=== PATIENT | female | born 1990 | race Caucasian/White ===

== ENCOUNTER 2018-07-25 18:13 | Emergency (ER) | payer OTHER ==
[2018-07-25 18:44] VITALS: BP 129/80
--- NOTE | 2018-07-25 19:29 | UC ---
Skin Complaint HPI - HPI Summary HPI Summary: Onset of pruritic rash in umbilical area x 3 weeks ago, improved, with progression to underside of both breasts. Following that, has developed scattered itchy papules under the breasts and in the Used aloe x 1 with no relief. Pruritus is increasing. No infectious contacts. No hot tub use. - History of Current Complaint Chief Complaint: UCRash Time Seen by Provider: 07/25/18 19:28 Stated Complaint: RASH Hx Obtained From: Patient Hx Last Menstrual Period: "a couple weeks ago" ?: No Onset/Duration: Gradual Onset, Lasting Weeks Timing: Constant Onset Severity: Mild Current Severity: Moderate Pain Intensity: 0 Location: Discrete - patches as described above Aggravating Factor(s): Touch - clothing Alleviating Factor(s): Nothing - Allergy/Home Medications Allergies/Adverse Reactions: Allergies Allergy/AdvReac Type Severity Reaction Status Date / Time No Known Allergies Allergy Verified 07/25/18 18:36 Home Medications: Home Medications FLUoxetine CAP* [PROzac CAP*] 60 mg PO DAILY 07/25/18 [History Confirmed ] Omeprazole CAP* [Prilosec CAP* 20 MG] 40 mg PO DAILY 07/25/18 [History Confirmed 07/25/18] Review of Systems Constitutional: Negative Gastrointestinal: Abdominal Pain - has bloating and cramping often, hx of IBS. Wonders about gluten sensitivity. Past testing negative, but that was years ago. Is Patient Immunocompromised?: No All Other Systems Reviewed And Are Negative: Yes PMH/Surg Hx/FS Hx/Imm Hx Previously Healthy: Yes GI/ History: Other Other GI/ History: Irritable bowel syndrome - Surgical History Surgical History: Yes Surgery Procedure, Year, and Place: Cholecystectomy, 2015, [place]; Tonsillectomy , ~1999, [place] - Family History Known Family History: Positive: Other Family History: + celiac disease. - Social History Occupation: Employed Full-time Lives: With Family Alcohol Use: Occasionally Substance Use Type: None Smoking Status (MU): Heavy Every Day Tobacco Smoker Type: Cigarettes Amount Used/How Often: 1/2 PPD Length of Time of Smoking/Using Tobacco: Since Age 13 (not during 3 pregnancies and quit for one year) Physical Exam Triage Information Reviewed: Yes Appearance: Well-Appearing, No Pain Distress, Obese Vital Signs: Initial Vital Signs Temp 98.5 F 07/25/18 18:33 Pulse 86 07/25/18 18:33 Resp 16 07/25/18 18:33 BP 129/80 07/25/18 18:33 Pulse Ox 99 07/25/18 18:33 Vital Signs Reviewed: Yes Eyes: Positive: Conjunctiva Clear ENT: Positive: Normal ENT inspection Neck exam: Normal Respiratory: Positive: Lungs clear, Normal breath sounds Cardiovascular: Positive: RRR, No Murmur Skin: Positive: rashes - upper inner arms with patch of small papules without erythema, not in axilla. Under both breasts, erythematous skin with numerous tiny pustules. No drainage. Course/Dx - Course Course Of Treatment: cephalexin for folliculitis; nystatin powder under breasts. - Differential Diagnoses - Skin Complaint Differential Diagnoses: Contact Dermatitis, Other - folliculitis, intertrigo - Diagnoses Provider Diagnoses: folliculitis, intertrigo Discharge - Sign-Out/Discharge Documenting (check all that apply): Patient Departure All imaging exams completed and their final reports reviewed: No Studies - Discharge Plan Condition: Stable Disposition: HOME Prescriptions: Cephalexin CAP* [Keflex 500 CAP*] 500 mg PO TID #15 cap Nystatin TOP POWDER* 1 applic TOPICAL BID #1 btl Patient Education Materials: Folliculitis (ED), Skin Yeast Infection (ED) Referrals: No Primary Care Phys,NOPCP [Primary Care Provider] - Additional Instructions: To stop itching, take benadryl 25mg at bedtime, and use 1% hydrocortisone on the skin of the upper arms. use a good moisturizer, such as cetaphil or CeraVe. Begin cephalexin for treatment of folliculitis. use nystatin powder to the area under the breasts. - Billing Disposition and Condition Condition: STABLE Disposition: Home
== END 2018-07-25 19:58 | disposition home or self-care (01) ==
LOC: UCCORT 18:13
DX: L25.9 Unspecified contact dermatitis, unspecified cause (principal); L73.9 Follicular disorder, unspecified; L30.4 Erythema intertrigo; F17.210 Nicotine dependence, cigarettes, uncomplicated
CPT/HCPCS: 99202; G0463

== ENCOUNTER 2018-11-10 14:54 | Emergency (ER) | payer BC, OTHER ==
[2018-11-10 15:11] VITALS: BP 127/75
--- NOTE | 2018-11-10 15:32 | UC ---
Ear Complaint HPI - HPI Summary HPI Summary: Started w/ bilat ear pain a few days ago, 10 days of cough and congestion. denies fever, n/v. does have sick contacts. - History of Current Complaint Chief Complaint: UCGeneralIllness Stated Complaint: BI LAT EAR PAIN Time Seen by Provider: 11/10/18 15:17 Hx Obtained From: Patient Hx Last Menstrual Period: 11/01/18 Severity Initially: Mild Severity Currently: Mild Pain Intensity: 2 Pain Scale Used: 0-10 Numeric - Allergies/Home Medications Allergies/Adverse Reactions: Allergies Allergy/AdvReac Type Severity Reaction Status Date / Time No Known Allergies Allergy Verified 11/10/18 15:10 PMH/Surg Hx/FS Hx/Imm Hx Previously Healthy: Yes - Surgical History Surgical History: Yes Surgery Procedure, Year, and Place: Cholecystectomy, 2014, [place]; Tonsillectomy , ~1999, [place] - Family History Known Family History: Positive: Other Family History: + celiac disease. - Social History Alcohol Use: Occasionally Substance Use Type: None Smoking Status (MU): Heavy Every Day Tobacco Smoker Type: Cigarettes Amount Used/How Often: 1/2 PPD Length of Time of Smoking/Using Tobacco: Since Age 13 (not during 3 pregnancies and quit for one year) Review of Systems All Other Systems Reviewed And Are Negative: Yes Constitutional: Positive: Negative. Negative: Fever Skin: Positive: Negative Eyes: Negative: Drainage, Eye Redness ENT: Positive: Ear Ache, Nasal Discharge. Negative: Sore Throat Respiratory: Positive: Cough Cardiovascular: Positive: Negative Gastrointestinal: Negative: Vomiting, Diarrhea Neurological: Negative: Headache Physical Exam Triage Information Reviewed: Yes Appearance: Well-Appearing Vital Signs: Initial Vital Signs Temp 97.8 F 11/10/18 15:08 Pulse 72 11/10/18 15:08 Resp 17 11/10/18 15:08 BP 127/75 11/10/18 15:08 Pulse Ox 100 11/10/18 15:08 Vital Signs Reviewed: Yes Eyes: Positive: Conjunctiva Clear ENT: Positive: Pharynx normal, TMs normal, Uvula midline Neck: Positive: Supple, No Lymphadenopathy Respiratory Exam: Normal Cardiovascular Exam: Normal Neurological: Positive: Alert Skin Exam: Normal Ear Complaint Course/Dx - Course Course Of Treatment: Started w/ nonproductive cough, no fever then bilat ear pain approx 2 wks ago. Sick contacts+. Exam essentially unremarkable, no signs of ear infection. Will give something for cough, viral etiology. Self limiting. Good vitals. - Differential Dx/Diagnosis Differential Diagnosis/HQI/PQRI: Bronchitis, Otitis Externa, URI Provider Diagnosis: Ear pain, URI (upper respiratory infection) Discharge - Sign-Out/Discharge Documenting (check all that apply): Patient Departure All imaging exams completed and their final reports reviewed: No Studies - Discharge Plan Condition: Good Disposition: HOME Prescriptions: Codeine Phosphate/Guaifenesin [Codeine-Guaifen 10-100 mg/5 ml] 1 teasp PO Q6HR 5 Days #1 bottle MDD 4 teaspoons/day Patient Education Materials: Upper Respiratory Infection (ED) Referrals: No Primary Care Phys,NOPCP [Primary Care Provider] - Additional Instructions: follow up with your main doctor if not improving. - Billing Disposition and Condition Condition: GOOD Disposition: Home
== END 2018-11-10 15:51 | disposition home or self-care (01) ==
LOC: UCCORT 14:54
DX: H92.03 Otalgia, bilateral (principal); J06.9 Acute upper respiratory infection, unspecified; F17.210 Nicotine dependence, cigarettes, uncomplicated
CPT/HCPCS: 99201; G0463

== ENCOUNTER 2019-04-05 21:24 | Emergency (ER) | payer OTHER ==
[2019-04-05 21:41] VITALS: BP 143/83
[2019-04-05] MEDS ORDERED: Lidocaine 2% VISCOUS* 15 ML UDC SWISH SPIT ONE (21:48)
--- NOTE | 2019-04-05 21:54 | UC ---
UC General HPI - HPI Summary HPI Summary: pt c/o sores in mouth x 5 days. son has a cold. + sore throat and cough. no fever. - History of Current Complaint Chief Complaint: UCRespiratory Stated Complaint: ORAL ISSUE Time Seen by Provider: 04/05/19 21:38 Hx Obtained From: Patient Hx Last Menstrual Period: 03/22/19 Onset/Duration: Gradual Onset Timing: Constant Pain Intensity: 5 - Allergy/Home Medications Allergies/Adverse Reactions: Allergies Allergy/AdvReac Type Severity Reaction Status Date / Time No Known Allergies Allergy Verified 11/10/18 15:10 PMH/Surg Hx/FS Hx/Imm Hx GI/ History: Gastroesophageal Reflux Psychological History: Depression - Surgical History Surgical History: Yes Surgery Procedure, Year, and Place: Cholecystectomy, 2014, [place]; Tonsillectomy , ~1999, [place] - Family History Known Family History: Positive: Other Family History: + celiac disease. - Social History Alcohol Use: Occasionally Substance Use Type: None Smoking Status (MU): Heavy Every Day Tobacco Smoker Type: Cigarettes Amount Used/How Often: 1/2 PPD Length of Time of Smoking/Using Tobacco: Since Age 13 Review of Systems All Other Systems Reviewed And Are Negative: Yes Constitutional: Negative: Fever Skin: Negative: Rash ENT: Positive: Sore Throat, Sinus Congestion Respiratory: Positive: Cough Physical Exam Triage Information Reviewed: Yes Appearance: Well-Appearing Vital Signs: Initial Vital Signs Temp 97.6 F 04/05/19 21:36 Pulse 78 04/05/19 21:36 Resp 16 04/05/19 21:36 BP 143/83 04/05/19 21:36 Pulse Ox 100 04/05/19 21:36 Vital Signs Reviewed: Yes Eyes: Positive: Conjunctiva Clear ENT: Positive: Pharyngeal erythema - with vesicles and erythema to soft palate and inside lips, TMs normal, Uvula midline. Negative: Nasal drainage, Trismus, Muffled voice, Hoarse voice Neck: Positive: Supple, Nontender, No Lymphadenopathy Respiratory: Positive: Lungs clear, Normal breath sounds Cardiovascular: Positive: RRR, No Murmur Abdomen Description: Positive: Nontender Musculoskeletal: Positive: ROM Intact Neurological: Positive: Alert Psychological: Positive: Age Appropriate Behavior Skin Exam: Normal Skin: Negative: Rashes Diagnostics - Laboratory Lab Results: RAPID STREP=NEGATIVE Course/Dx - Diagnoses Provider Diagnosis: Viral stomatitis Discharge - Sign-Out/Discharge Documenting (check all that apply): Patient Departure All imaging exams completed and their final reports reviewed: No Studies - Discharge Plan Condition: Stable Disposition: HOME Prescriptions: Magic Mouth Was-JENNY/MAAL/LIDO* 5 ml SWISH SPIT QID 3 Days #60 ml Patient Education Materials: Gingivostomatitis (ED) Referrals: NADIA Cintron [Medical Doctor] - Additional Instructions: FOLLOW UP IF NOT BETTER IN 5 DAYS OR SOONER IF WORSE. - Billing Disposition and Condition Condition: STABLE Disposition: Home
== END 2019-04-05 21:57 | disposition home or self-care (01) ==
LOC: UCCORT 21:24
DX: K12.1 Other forms of stomatitis (principal); F17.210 Nicotine dependence, cigarettes, uncomplicated
CPT/HCPCS: 87651; 99212; G0463

== ENCOUNTER 2019-04-18 08:51 | Emergency (ER) | payer OTHER ==
--- NOTE | 2019-04-18 10:10 | UC ---
Dizzy HPI HPI Summary: 29 yo female with a two day hx of dizziness. She states it feels as if she is on a rocking boat. No true vertigo. She has had a few near falls and yesterday felt as though she might pass out. For most of the day yesterday she had palpitations. 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 - Social History Alcohol Use: Daily Substance Use Type: None Smoking Status (MU): Heavy Every Day Tobacco Smoker Type: Cigarettes Amount Used/How Often: 1/2 PPD Length of Time of Smoking/Using Tobacco: Since Age 13 Review of Systems All Other Systems Reviewed And Are Negative: Yes Constitutional: Positive: Negative Skin: Positive: Negative Eyes: Positive: Negative ENT: Positive: Negative Respiratory: Positive: Negative Cardiovascular: Positive: Negative Gastrointestinal: Positive: Negative Genitourinary: Positive: Negative Motor: Positive: Negative Neurovascular: Positive: Negative Musculoskeletal: Positive: Negative Neurological: Positive: Negative Psychological: Positive: Negative Physical Exam Triage Information Reviewed: Yes Appearance: Well-Appearing, No Pain Distress, Well-Nourished Vital Signs: Initial Vital Signs Temp 97.6 F 04/18/19 09:15 Pulse 70 04/18/19 09:15 Resp 18 04/18/19 09:15 BP 141/84 04/18/19 09:15 Pulse Ox 100 04/18/19 09:15 Vital Signs Reviewed: Yes Eyes: Positive: Conjunctiva Clear, Other: - eomi/perrl ENT: Positive: Hearing grossly normal, Pharynx normal, TMs normal, Uvula midline. Negative: Pharyngeal erythema, Nasal congestion, Nasal drainage, Tonsillar swelling, Tonsillar exudate, Trismus, Muffled voice, Hoarse voice, Dental tenderness, Sinus tenderness Neck: Positive: Supple, Nontender, No Lymphadenopathy Respiratory: Positive: Lungs clear, Normal breath sounds, No respiratory distress, No accessory muscle use Cardiovascular: Positive: RRR, No Murmur. Negative: Tachycardia, Bradycardia Abdomen Description: Positive: Nontender, No Organomegaly Musculoskeletal: Positive: ROM Intact, No Edema Neurological: Positive: Alert, Muscle Tone Normal, Other: - GCS 15/15, cn2-12 intact, dtr's brisk and symmetric, negative rhomberg Psychological Exam: Normal Skin Exam: Normal Diagnostics - EKG Cardiac Rate: NL Cardiac Rhythm: Sinus: Normal Ectopy: None ST Segment: Normal Summary of EKG Findings: INC RBBB Dizzy Course/Dx - Course Course Of Treatment: because of patients disequilibrium I suggested a CT of the Brain- she refused - Differential Dx/Diagnosis Provider Diagnosis: Disequilibrium, Palpitations Discharge - Sign-Out/Discharge Documenting (check all that apply): Patient Departure All imaging exams completed and their final reports reviewed: No Studies - Discharge Plan Condition: Stable Disposition: HOME Prescriptions: Meclizine TAB* [Antivert 12.5 TAB*] 25 mg PO TID PRN #20 tab PRN Reason: Dizziness Patient Education Materials: Heart Palpitations (ED), Dizziness (ED) Forms: *Work Release Referrals: Christina De Dios MD [Primary Care Provider] - 4 Days Additional Instructions: please return for new or worsening symptoms blood work pending - Billing Disposition and Condition Condition: STABLE Disposition: Home
[2019-04-18 10:31] VITALS: BP 119/75
[2019-04-18 13:24] LABS: ABS Basophils 0.1 10^3/ul (0-0.2); ABS Eosinophils 0.1 10^3/ul (0-0.6); ABS Lymphocytes 1.5 10^3/ul (1.0-4.8); ABS Monocytes 0.7 10^3/ul (0-0.8); ABS Neutrophils 5.2 10^3/ul (1.5-7.7); Eosinophil % 1.8 %; Hematocrit 38 % (35-47); Hemoglobin 12.5 g/dL (12.0-16.0); Lymphocyte % 20.1 %; Mean Corpuscular HGB Conc 33 g/dL (31-36); Mean Corpuscular Hemoglobin 29 pg (27-31); Mean Corpuscular Volume 89 fL (80-97); Mean Platelet Volume 7.4 fL (7.4-10.4); Platelet Count 419 10^3/uL (150-450); Red Blood Count 4.28 10^6 /uL (3.70-4.87); Red Cell Distribution Width 16 % (10.5-15); White Blood Count 7.6 10^3/uL (3.5-10.8)
[2019-04-18 13:56] LABS: Potassium 4.6 mmol/L (3.5-5.0)
[2019-04-18 13:59] LABS: TSH (Thyroid Stimulating Horm) 0.8 mcIU/mL (0.34-5.60)
[2019-04-18 14:02] LABS: BUN/Creatinine Ratio 16.7 (8-20); EGFR African American 95.7 (>60); EGFR Non-African American 79.1 (>60)
== END 2019-04-18 11:02 | disposition home or self-care (01) ==
LOC: UCCORT 08:51
DX: E87.8 Other disorders of electrolyte and fluid balance, not elsewhere classified (principal); R00.2 Palpitations; I45.10 Unspecified right bundle-branch block; F17.210 Nicotine dependence, cigarettes, uncomplicated
CPT/HCPCS: 36415; 80048; 84443; 85025; 93005; 99212; G0463

== ENCOUNTER 2019-08-13 08:27 | Emergency (ER) | payer OTHER ==
[2019-08-13 08:45] VITALS: BP 128/64
--- NOTE | 2019-08-13 10:11 | UC ---
Throat Pain/Nasal Rigo HPI - HPI Summary HPI Summary: 29-year-old woman comes in with a chief complaint of 2 weeks of upper respiratory tract infection symptoms. She's been having yellow rhinorrhea. Started with a sore throat. It has moved down into her chest she's having chest congestion as having a hard time getting a sputum out she is reporting wheezing. Also shortness of breath with activity. No recent fevers. No history of asthma. She is a smoker. - History of Current Complaint Chief Complaint: UCGeneralIllness Stated Complaint: COUGH,FEVER,CONGESTION,BODY ACHES Time Seen by Provider: 08/13/19 09:54 Hx Last Menstrual Period: 07/2019 Pain Intensity: 7 - Allergies/Home Medications Allergies/Adverse Reactions: Allergies Allergy/AdvReac Type Severity Reaction Status Date / Time No Known Allergies Allergy Verified 08/13/19 08:42 Home Medications: Home Medications guaiFENesin [Mucinex] 600 mg PO ONCE 08/13/19 [History Confirmed 08/13/19] PMH/Surg Hx/FS Hx/Imm Hx Previously Healthy: Yes GI/ History: Gastroesophageal Reflux - Surgical History Surgical History: Yes Surgery Procedure, Year, and Place: Cholecystectomy, 2014, [place]; Tonsillectomy , ~1999, [place] - Family History Known Family History: Positive: Hypertension, Other Negative: Cardiac Disease, Diabetes Family History: + celiac disease. - Social History Alcohol Use: Occasionally Substance Use Type: None Smoking Status (MU): Heavy Every Day Tobacco Smoker Type: Cigarettes Amount Used/How Often: 1/2 PPD Length of Time of Smoking/Using Tobacco: Since Age 13 Review of Systems All Other Systems Reviewed And Are Negative: Yes Constitutional: Positive: Other - SEE HPI Skin: Positive: Negative Eyes: Positive: Negative ENT: Positive: Sore Throat, Nasal Discharge, Sinus Congestion Respiratory: Positive: Shortness Of Breath, Cough, Other - SEE HPI Cardiovascular: Positive: Negative Gastrointestinal: Positive: Negative Motor: Positive: Negative Neurovascular: Positive: Negative Musculoskeletal: Positive: Negative Neurological: Positive: Negative Psychological: Positive: Negative Is Patient Immunocompromised?: No Physical Exam Triage Information Reviewed: Yes Appearance: No Pain Distress, Well-Nourished, Ill-Appearing - MILD Vital Signs: Initial Vital Signs Temp 99.3 F 08/13/19 08:40 Pulse 92 08/13/19 08:40 Resp 18 08/13/19 08:40 BP 128/64 08/13/19 08:40 Pulse Ox 99 08/13/19 08:40 Vital Signs Reviewed: Yes Eye Exam: Normal Eyes: Positive: Conjunctiva Clear ENT: Positive: Pharyngeal erythema, Nasal congestion, Nasal drainage, TMs normal Neck: Positive: Supple Respiratory: Positive: Lungs clear, Normal breath sounds, No respiratory distress Cardiovascular: Positive: RRR Musculoskeletal: Positive: Strength Intact, ROM Intact Neurological: Positive: Alert, Muscle Tone Normal Psychological: Positive: Normal Response To Family, Age Appropriate Behavior Skin Exam: Normal Throat Pain/Nasal Course/Dx - Differential Dx/Diagnosis Provider Diagnosis: Bronchitis with bronchospasm Discharge ED - Sign-Out/Discharge Documenting (check all that apply): Patient Departure All imaging exams completed and their final reports reviewed: No Studies - Discharge Plan Condition: Stable Disposition: HOME Prescriptions: Albuterol HFA INHALER* [Ventolin HFA Inhaler*] 2 puff INH Q4H PRN #1 mdi PRN Reason: Wheezing Azithromyxin FERMIN (NF) [Z-Fermin (Zithromax) 250 mg tabs #6] 2 tab PO .TODAY, THEN 1 DAILY #6 tab predniSONE TAB* [Deltasone 20 MG TAB*] 20 mg PO DAILY #3 tab Patient Education Materials: Acute Bronchitis (ED), Bronchospasm (ED) Forms: *Work Release Referrals: Christina De Dios MD [Primary Care Provider] - Additional Instructions: FOLLOW UP WITH YOUR DOCTOR IF NOT COMPLETELY IMPROVED. GET REEVALUATED SOONER IF WORSE OR ANY QUESTIONS OR CONCERNS. - Billing Disposition and Condition Condition: STABLE Disposition: Home
== END 2019-08-13 10:21 | disposition home or self-care (01) ==
LOC: UCCORT 08:27
DX: J20.9 Acute bronchitis, unspecified (principal); K21.9 Gastro-esophageal reflux disease without esophagitis; F17.210 Nicotine dependence, cigarettes, uncomplicated
CPT/HCPCS: 99212; G0463